=== PATIENT | male | born 1975 | race Caucasian/White ===

== ENCOUNTER 2018-05-27 08:14 | Outpatient (RCR) | payer BC, SELFPAY ==
[2018-05-27] MEDS: Normal Saline Flush 10 ML SYR IVP (08:15)
[2018-05-27 08:54] LABS: Absolute Basophil Count 0.02 k/cumm (0.0-0.2); Absolute Eosinophil Count 0.15 k/cumm (0.0-0.7); Absolute Lymphocyte Count 0.87 k/cumm (1.2-3.4); Absolute Monocyte Count 0.22 k/cumm (0.11-0.7); Absolute Neutrophil Count 2.39 k/cumm (1.2-6.7); Basophils % 0.5; Eosinophils % 4.1; HCT 41.2 % (40.0-50.0); HGB 13.9 g/dL (13.5-17.5); Lymphocytes % 23.8; Mean Corp. HGB Concentration 33.7 g/dL (32.0-36.0); Mean Corpuscular Hemoglobin 30.9 pg (27.0-33.0); Mean Corpuscular Volume 91.6 fL (80-95); Mean Platelet Volume 9.4 fL (8.0-11.0); Neutrophils % 65.6; Platelet Count 211 x1000/uL (130-400); White Blood Cell Count 3.65 k/cumm (4.4-10.8)
[2018-05-27 09:05] LABS: ALT 22 U/L (12-78); AST 17 U/L (15-37); Alkaline Phosphatase 83 U/L (46-116); Anion Gap 5.9 mmol/L (3-11); BUN 30 mg/dL (7-18); Bilirubin, Total 0.4 mg/dL (0.2-1.0); CO2 32.1 mmol/L (21.0-32.0); CREATININE 0.62 mg/dL (0.70-1.30); Calcium 8.9 mg/dL (8.5-10.1); Chloride 102 mmol/L (98-107); Glucose 86 mg/dL (70-100); Sodium 140 mmol/L (136-145); Total Protein 7.5 g/dL (6.4-8.2)
== END 2018-06-10 23:59 | disposition home or self-care (01) ==
LOC: INF 08:14
PROVIDERS: PCP Family Medicine; Visit Provider Nurse Practitioner Adult Health
DX: C01 Malignant neoplasm of base of tongue (principal); Z45.2 Encounter for adjustment and management of vascular access device
CPT/HCPCS: 36591; 80053; 85025

== ENCOUNTER 2018-06-18 00:55 | Outpatient (RCR) | payer BC, SELFPAY ==
[2018-06-18] MEDS: Normal Saline Flush 10 ML SYR IVP (08:10)
[2018-06-18 08:34] LABS: Absolute Basophil Count 0.01 k/cumm (0.0-0.2); Absolute Eosinophil Count 0.02 k/cumm (0.0-0.7); Absolute Lymphocyte Count 0.75 k/cumm (1.2-3.4); Absolute Monocyte Count 0.25 k/cumm (0.11-0.7); Basophils % 0.3; Eosinophils % 0.7; HCT 39.4 % (40.0-50.0); HGB 13.3 g/dL (13.5-17.5); Lymphocytes % 24.8; Mean Corp. HGB Concentration 33.8 g/dL (32.0-36.0); Mean Corpuscular Hemoglobin 30.2 pg (27.0-33.0); Mean Corpuscular Volume 89.5 fL (80-95); Mean Platelet Volume 8.5 fL (8.0-11.0); Monocytes % 8.3; Neutrophils % 65.9; Platelet Count 202 x1000/uL (130-400); RBC Distribution Width 12.6 % (11.8-14.1); White Blood Cell Count 3.03 k/cumm (4.4-10.8)
[2018-06-18 08:58] LABS: ALT 25 U/L (12-78); AST 15 U/L (15-37); Albumin 3.8 g/dL (3.4-5.0); Alkaline Phosphatase 93 U/L (46-116); Anion Gap 8.1 mmol/L (3-11); BUN 12 mg/dL (7-18); Bilirubin, Total 0.3 mg/dL (0.2-1.0); CO2 29.9 mmol/L (21.0-32.0); CREATININE 0.71 mg/dL (0.70-1.30); Calcium 8.8 mg/dL (8.5-10.1); Chloride 103 mmol/L (98-107); Glucose 85 mg/dL (70-100); Potassium 3.8 mmol/L (3.5-5.1); Sodium 141 mmol/L (136-145); TSH 3.33 uIU/mL (0.358-3.74); Total Protein 7.1 g/dL (6.4-8.2)
[2018-06-18 09:53] LABS: Magnesium 1.8 mg/dL (1.8-2.4)
== END 2018-07-10 23:59 | disposition home or self-care (01) ==
LOC: INF 00:55
PROVIDERS: PCP Family Medicine; Visit Provider Internal Medicine Hematology & Oncology
DX: C01 Malignant neoplasm of base of tongue (principal); C76.0 Malignant neoplasm of head, face and neck; Z45.2 Encounter for adjustment and management of vascular access device
CPT/HCPCS: 36591; 80053; 83735; 84443; 85025

== ENCOUNTER 2018-07-16 02:13 | Outpatient (RCR) | payer BC, SELFPAY ==
[2018-07-16] MEDS: Normal Saline Flush 10 ML SYR IVP (09:15)
[2018-07-16 09:25] LABS: Abs Immature Grans 0.01 k/cumm (0.0-0.09); Absolute Basophil Count 0.02 k/cumm (0.0-0.2); Absolute Eosinophil Count 0.12 k/cumm (0.0-0.7); Absolute Lymphocyte Count 1.38 k/cumm (1.2-3.4); Absolute Monocyte Count 0.36 k/cumm (0.11-0.7); Absolute Neutrophil Count 2.94 k/cumm (1.2-6.7); Basophils % 0.4; Eosinophils % 2.5; HCT 41.8 % (40.0-50.0); HGB 14.6 g/dL (13.5-17.5); Immature Grans % 0.2; Lymphocytes % 28.6; Mean Corp. HGB Concentration 34.9 g/dL (32.0-36.0); Mean Corpuscular Hemoglobin 31.1 pg (27.0-33.0); Mean Corpuscular Volume 89.1 fL (80-95); Mean Platelet Volume 8.4 fL (8.0-11.0); Monocytes % 7.5; Neutrophils % 60.8; Platelet Count 205 x1000/uL (130-400); RBC 4.69 m/cumm (4.50-6.00); RBC Distribution Width 13.8 % (11.8-14.1); White Blood Cell Count 4.83 k/cumm (4.4-10.8)
[2018-07-16 09:48] LABS: ALT 24 U/L (12-78); AST 16 U/L (15-37); Albumin 4.1 g/dL (3.4-5.0); Alkaline Phosphatase 103 U/L (46-116); Anion Gap 8.3 mmol/L (3-11); BUN 22 mg/dL (7-18); Bilirubin, Total 0.4 mg/dL (0.2-1.0); CO2 29.7 mmol/L (21.0-32.0); Calcium 8.9 mg/dL (8.5-10.1); Chloride 101 mmol/L (98-107); Glucose 94 mg/dL (70-100); Sodium 139 mmol/L (136-145); Total Protein 7.5 g/dL (6.4-8.2)
== END 2018-08-10 23:59 | disposition home or self-care (01) ==
LOC: INF 02:13
PROVIDERS: PCP Family Medicine; Visit Provider Internal Medicine Hematology & Oncology
DX: C01 Malignant neoplasm of base of tongue (principal); Z45.2 Encounter for adjustment and management of vascular access device; E03.9 Hypothyroidism, unspecified; C76.0 Malignant neoplasm of head, face and neck; B37.0 Candidal stomatitis; R91.1 Solitary pulmonary nodule
CPT/HCPCS: 36591; 80053; 83735; 84443; 85025

== ENCOUNTER 2018-10-21 02:44 | Outpatient (RCR) | payer BC, SELFPAY ==
[2018-10-21] MEDS: Normal Saline Flush 10 ML SYR IVP (12:18)
[2018-10-21 12:31] LABS: Abs Immature Grans 0.01 k/cumm (0.0-0.09); Absolute Basophil Count 0.02 k/cumm (0.0-0.2); Absolute Eosinophil Count 0.12 k/cumm (0.0-0.7); Absolute Lymphocyte Count 1.41 k/cumm (1.2-3.4); Absolute Monocyte Count 0.35 k/cumm (0.11-0.7); Absolute Neutrophil Count 4.58 k/cumm (1.2-6.7); Basophils % 0.3; Eosinophils % 1.8; HCT 39.5 % (40.0-50.0); HGB 13.3 g/dL (13.5-17.5); Immature Grans % 0.2; Lymphocytes % 21.7; Mean Corp. HGB Concentration 33.7 g/dL (32.0-36.0); Mean Corpuscular Hemoglobin 30.4 pg (27.0-33.0); Mean Corpuscular Volume 90.4 fL (80-95); Mean Platelet Volume 8.5 fL (8.0-11.0); Monocytes % 5.4; Neutrophils % 70.6; Platelet Count 261 x1000/uL (130-400); RBC 4.37 m/cumm (4.50-6.00); RBC Distribution Width 11.7 % (11.8-14.1); White Blood Cell Count 6.49 k/cumm (4.4-10.8)
[2018-10-21 12:49] LABS: ALT 23 U/L (12-78); AST 16 U/L (15-37); Albumin 3.7 g/dL (3.4-5.0); Alkaline Phosphatase 93 U/L (46-116); Anion Gap 5.4 mmol/L (3-11); BUN 28 mg/dL (7-18); Bilirubin, Total 0.2 mg/dL (0.2-1.0); CO2 31.6 mmol/L (21.0-32.0); CREATININE 0.74 mg/dL (0.70-1.30); Calcium 8.6 mg/dL (8.5-10.1); Chloride 102 mmol/L (98-107); Glucose 100 mg/dL (70-100); Magnesium 1.8 mg/dL (1.8-2.4); Potassium 4.1 mmol/L (3.5-5.1); Sodium 139 mmol/L (136-145); Total Protein 7.3 g/dL (6.4-8.2)
== END 2018-11-08 23:59 | disposition home or self-care (01) ==
LOC: INF 02:44
PROVIDERS: PCP Family Medicine; Visit Provider Nurse Practitioner Adult Health
DX: C01 Malignant neoplasm of base of tongue (principal); E03.9 Hypothyroidism, unspecified; C76.0 Malignant neoplasm of head, face and neck; B37.0 Candidal stomatitis; R91.1 Solitary pulmonary nodule; Z45.2 Encounter for adjustment and management of vascular access device
CPT/HCPCS: 36591; 80053; 83735; 85025

== ENCOUNTER 2018-12-03 02:19 | Outpatient (RCR) | payer BC, SELFPAY ==
[2018-11-12] MEDS: Normal Saline Flush 10 ML SYR IVP (09:00)
[2018-11-12 09:23] LABS: Abs Immature Grans 0.01 k/cumm (0.0-0.09); Absolute Basophil Count 0.02 k/cumm (0.0-0.2); Absolute Eosinophil Count 0.26 k/cumm (0.0-0.7); Absolute Lymphocyte Count 1.19 k/cumm (1.2-3.4); Absolute Monocyte Count 0.29 k/cumm (0.11-0.7); Basophils % 0.3; Eosinophils % 4.2; HCT 39.1 % (40.0-50.0); HGB 13.5 g/dL (13.5-17.5); Immature Grans % 0.2; Lymphocytes % 19.3; Mean Corp. HGB Concentration 34.5 g/dL (32.0-36.0); Mean Corpuscular Hemoglobin 30.8 pg (27.0-33.0); Mean Corpuscular Volume 89.3 fL (80-95); Mean Platelet Volume 8.5 fL (8.0-11.0); Monocytes % 4.7; Neutrophils % 71.3; Platelet Count 214 x1000/uL (130-400); RBC 4.38 m/cumm (4.50-6.00); RBC Distribution Width 12.4 % (11.8-14.1); White Blood Cell Count 6.17 k/cumm (4.4-10.8)
[2018-11-12 09:46] LABS: ALT 23 U/L (12-78); AST 17 U/L (15-37); Albumin 3.9 g/dL (3.4-5.0); Alkaline Phosphatase 105 U/L (46-116); Anion Gap 8.8 mmol/L (3-11); BUN 27 mg/dL (7-18); Bilirubin, Total 0.4 mg/dL (0.2-1.0); CO2 29.2 mmol/L (21.0-32.0); CREATININE 0.74 mg/dL (0.70-1.30); Calcium 8.6 mg/dL (8.5-10.1); Chloride 103 mmol/L (98-107); Glucose 91 mg/dL (70-100); Magnesium 1.9 mg/dL (1.8-2.4); Potassium 4.1 mmol/L (3.5-5.1); Sodium 141 mmol/L (136-145); Total Protein 7.3 g/dL (6.4-8.2)
[2018-12-03] MEDS: Normal Saline Flush 10 ML SYR IVP (08:50)
[2018-12-03 09:06] LABS: Abs Immature Grans 0.01 k/cumm (0.0-0.09); Absolute Basophil Count 0.02 k/cumm (0.0-0.2); Absolute Eosinophil Count 0.22 k/cumm (0.0-0.7); Absolute Lymphocyte Count 1.13 k/cumm (1.2-3.4); Absolute Neutrophil Count 3.18 k/cumm (1.2-6.7); Basophils % 0.4; Eosinophils % 4.5; HCT 38.5 % (40.0-50.0); HGB 12.8 g/dL (13.5-17.5); Immature Grans % 0.2; Lymphocytes % 23.3; Mean Corp. HGB Concentration 33.2 g/dL (32.0-36.0); Mean Corpuscular Hemoglobin 29.9 pg (27.0-33.0); Mean Platelet Volume 8.3 fL (8.0-11.0); Monocytes % 6.2; Neutrophils % 65.4; Platelet Count 308 x1000/uL (130-400); RBC 4.28 m/cumm (4.50-6.00); RBC Distribution Width 12.6 % (11.8-14.1); White Blood Cell Count 4.86 k/cumm (4.4-10.8)
[2018-12-03 09:27] LABS: ALT 18 U/L (12-78); AST 13 U/L (15-37); Albumin 3.7 g/dL (3.4-5.0); Alkaline Phosphatase 90 U/L (46-116); Anion Gap 8.3 mmol/L (3-11); BUN 30 mg/dL (7-18); Bilirubin, Total 0.3 mg/dL (0.2-1.0); CO2 26.7 mmol/L (21.0-32.0); Calcium 8.5 mg/dL (8.5-10.1); Chloride 101 mmol/L (98-107); FREE T4 1.03 ng/dL (0.76-1.46); Glucose 104 mg/dL (70-100); Magnesium 1.8 mg/dL (1.8-2.4); Potassium 3.9 mmol/L (3.5-5.1); Sodium 136 mmol/L (136-145); TSH 5.55 uIU/mL (0.358-3.74); Total Protein 7.5 g/dL (6.4-8.2)
== END 2018-12-08 23:59 | disposition home or self-care (01) ==
LOC: INF 02:19
PROVIDERS: PCP Family Medicine; Visit Provider Nurse Practitioner Adult Health
DX: C01 Malignant neoplasm of base of tongue (principal); E03.9 Hypothyroidism, unspecified; C76.0 Malignant neoplasm of head, face and neck; B37.0 Candidal stomatitis; R91.8 Other nonspecific abnormal finding of lung field; Z45.2 Encounter for adjustment and management of vascular access device
CPT/HCPCS: 36591; 80053; 83735; 84439; 84443; 85025

== ENCOUNTER 2018-12-29 01:02 | Outpatient (RCR) | payer BC, SELFPAY ==
[2018-12-29] MEDS: Normal Saline Flush 10 ML SYR IVP (10:24)
[2018-12-29 10:37] LABS: Abs Immature Grans 0.01 k/cumm (0.0-0.09); Absolute Basophil Count 0.03 k/cumm (0.0-0.2); Absolute Eosinophil Count 0.21 k/cumm (0.0-0.7); Absolute Lymphocyte Count 1.27 k/cumm (1.2-3.4); Absolute Monocyte Count 0.34 k/cumm (0.11-0.7); Absolute Neutrophil Count 4.74 k/cumm (1.2-6.7); Basophils % 0.5; Eosinophils % 3.2; HCT 40.5 % (40.0-50.0); HGB 13.7 g/dL (13.5-17.5); Immature Grans % 0.2; Lymphocytes % 19.2; Mean Corp. HGB Concentration 33.8 g/dL (32.0-36.0); Mean Corpuscular Hemoglobin 30.6 pg (27.0-33.0); Mean Corpuscular Volume 90.6 fL (80-95); Mean Platelet Volume 8.7 fL (8.0-11.0); Monocytes % 5.2; Neutrophils % 71.7; Platelet Count 221 x1000/uL (130-400); RBC 4.47 m/cumm (4.50-6.00); RBC Distribution Width 13.4 % (11.8-14.1)
[2018-12-29 11:00] LABS: ALT 31 U/L (12-78); AST 16 U/L (15-37); Albumin 3.7 g/dL (3.4-5.0); Alkaline Phosphatase 101 U/L (46-116); Anion Gap 6.3 mmol/L (3-11); BUN 24 mg/dL (7-18); Bilirubin, Total 0.4 mg/dL (0.2-1.0); CO2 29.7 mmol/L (21.0-32.0); CREATININE 0.75 mg/dL (0.70-1.30); Calcium 8.5 mg/dL (8.5-10.1); Chloride 103 mmol/L (98-107); FREE T4 0.98 ng/dL (0.76-1.46); Glucose 102 mg/dL (70-100); Magnesium 1.9 mg/dL (1.8-2.4); Potassium 3.6 mmol/L (3.5-5.1); Sodium 139 mmol/L (136-145); Total Protein 7.1 g/dL (6.4-8.2)
== END 2019-01-08 23:59 | disposition home or self-care (01) ==
LOC: INF 01:02
PROVIDERS: Nurse Practitioner Adult Health; PCP Family Medicine; Visit Provider Internal Medicine Hematology & Oncology
DX: C01 Malignant neoplasm of base of tongue (principal); C76.0 Malignant neoplasm of head, face and neck; E03.9 Hypothyroidism, unspecified; B37.0 Candidal stomatitis; R91.1 Solitary pulmonary nodule; Z45.2 Encounter for adjustment and management of vascular access device
CPT/HCPCS: 36591; 80053; 83735; 84439; 84443; 85025

== ENCOUNTER 2019-01-21 02:02 | Outpatient (RCR) | payer BC, SELFPAY ==
[2019-01-21] MEDS: Normal Saline Flush 10 ML SYR IVP (09:20)
[2019-01-21 09:54] LABS: Abs Immature Grans 0.01 k/cumm (0.0-0.09); Absolute Basophil Count 0.02 k/cumm (0.0-0.2); Absolute Eosinophil Count 0.24 k/cumm (0.0-0.7); Absolute Lymphocyte Count 1.04 k/cumm (1.2-3.4); Absolute Monocyte Count 0.33 k/cumm (0.11-0.7); Absolute Neutrophil Count 3.94 k/cumm (1.2-6.7); Basophils % 0.4; Eosinophils % 4.3; HCT 39.8 % (40.0-50.0); HGB 13.6 g/dL (13.5-17.5); Immature Grans % 0.2; Lymphocytes % 18.6; Mean Corp. HGB Concentration 34.2 g/dL (32.0-36.0); Mean Corpuscular Hemoglobin 30.6 pg (27.0-33.0); Mean Corpuscular Volume 89.4 fL (80-95); Mean Platelet Volume 8.6 fL (8.0-11.0); Monocytes % 5.9; Neutrophils % 70.6; Platelet Count 251 x1000/uL (130-400); RBC 4.45 m/cumm (4.50-6.00); RBC Distribution Width 12.5 % (11.8-14.1); White Blood Cell Count 5.58 k/cumm (4.4-10.8)
[2019-01-21 10:15] LABS: ALT 20 U/L (12-78); AST 15 U/L (15-37); Albumin 3.6 g/dL (3.4-5.0); Alkaline Phosphatase 99 U/L (46-116); Anion Gap 9.5 mmol/L (3-11); BUN 30 mg/dL (7-18); Bilirubin, Total 0.4 mg/dL (0.2-1.0); CO2 26.5 mmol/L (21.0-32.0); CREATININE 0.72 mg/dL (0.70-1.30); Calcium 8.6 mg/dL (8.5-10.1); Chloride 103 mmol/L (98-107); FREE T4 1.03 ng/dL (0.76-1.46); Glucose 89 mg/dL (70-100); Magnesium 2.1 mg/dL (1.8-2.4); Potassium 3.8 mmol/L (3.5-5.1); Sodium 139 mmol/L (136-145); TSH 4.54 uIU/mL (0.358-3.74); Total Protein 7.3 g/dL (6.4-8.2)
== END 2019-02-07 23:59 | disposition home or self-care (01) ==
LOC: INF 02:02
PROVIDERS: PCP Family Medicine; Visit Provider Internal Medicine Hematology & Oncology
DX: C01 Malignant neoplasm of base of tongue (principal); C76.0 Malignant neoplasm of head, face and neck; E03.9 Hypothyroidism, unspecified; B37.0 Candidal stomatitis; R91.1 Solitary pulmonary nodule; Z45.2 Encounter for adjustment and management of vascular access device
CPT/HCPCS: 36591; 80053; 83735; 84439; 84443; 85025

== ENCOUNTER 2019-03-04 01:40 | Outpatient (RCR) | payer BC, SELFPAY ==
[2019-02-12] MEDS: Normal Saline Flush 10 ML SYR IVP (12:50)
[2019-02-12 13:21] LABS: Abs Immature Grans 0.01 k/cumm (0.0-0.09); Absolute Basophil Count 0.03 k/cumm (0.0-0.2); Absolute Eosinophil Count 0.29 k/cumm (0.0-0.7); Absolute Lymphocyte Count 1.46 k/cumm (1.2-3.4); Absolute Monocyte Count 0.31 k/cumm (0.11-0.7); Absolute Neutrophil Count 3.04 k/cumm (1.2-6.7); Basophils % 0.6; Eosinophils % 5.6; HCT 39.7 % (40.0-50.0); Immature Grans % 0.2; Lymphocytes % 28.4; Mean Corp. HGB Concentration 32.7 g/dL (32.0-36.0); Mean Corpuscular Hemoglobin 29.2 pg (27.0-33.0); Mean Corpuscular Volume 89.2 fL (80-95); Mean Platelet Volume 8.5 fL (8.0-11.0); Neutrophils % 59.2; Platelet Count 254 x1000/uL (130-400); RBC 4.45 m/cumm (4.50-6.00); RBC Distribution Width 12.5 % (11.8-14.1); White Blood Cell Count 5.14 k/cumm (4.4-10.8)
[2019-02-12 13:54] LABS: ALT 18 U/L (12-78); AST 16 U/L (15-37); Albumin 3.6 g/dL (3.4-5.0); Alkaline Phosphatase 93 U/L (46-116); Anion Gap 7.8 mmol/L (3-11); BUN 24 mg/dL (7-18); Bilirubin, Total 0.2 mg/dL (0.2-1.0); CO2 27.2 mmol/L (21.0-32.0); CREATININE 0.86 mg/dL (0.70-1.30); Calcium 8.7 mg/dL (8.5-10.1); Chloride 105 mmol/L (98-107); FREE T4 0.96 ng/dL (0.76-1.46); Glucose 100 mg/dL (70-100); Potassium 3.7 mmol/L (3.5-5.1); Sodium 140 mmol/L (136-145); TSH 5.36 uIU/mL (0.358-3.74); Total Protein 7.1 g/dL (6.4-8.2)
[2019-03-04] MEDS: Normal Saline Flush 10 ML SYR IVP (10:30)
[2019-03-04 11:01] LABS: Abs Immature Grans 0.01 k/cumm (0.0-0.09); Absolute Basophil Count 0.03 k/cumm (0.0-0.2); Absolute Eosinophil Count 0.23 k/cumm (0.0-0.7); Absolute Lymphocyte Count 1.15 k/cumm (1.2-3.4); Absolute Monocyte Count 0.31 k/cumm (0.11-0.7); Absolute Neutrophil Count 4.61 k/cumm (1.2-6.7); Basophils % 0.5; Eosinophils % 3.6; HCT 41.7 % (40.0-50.0); HGB 14.1 g/dL (13.5-17.5); Immature Grans % 0.2; Lymphocytes % 18.1; Mean Corp. HGB Concentration 33.8 g/dL (32.0-36.0); Mean Corpuscular Hemoglobin 29.9 pg (27.0-33.0); Mean Corpuscular Volume 88.3 fL (80-95); Mean Platelet Volume 8.7 fL (8.0-11.0); Monocytes % 4.9; Neutrophils % 72.7; Platelet Count 231 x1000/uL (130-400); RBC 4.72 m/cumm (4.50-6.00); RBC Distribution Width 12.8 % (11.8-14.1); White Blood Cell Count 6.34 k/cumm (4.4-10.8)
[2019-03-04 11:28] LABS: ALT 19 U/L (12-78); AST 8 U/L (15-37); Albumin 3.9 g/dL (3.4-5.0); Alkaline Phosphatase 96 U/L (46-116); Anion Gap 7.3 mmol/L (3-11); BUN 26 mg/dL (7-18); Bilirubin, Total 0.6 mg/dL (0.2-1.0); CO2 27.7 mmol/L (21.0-32.0); CREATININE 0.89 mg/dL (0.70-1.30); Calcium 8.9 mg/dL (8.5-10.1); Chloride 104 mmol/L (98-107); FREE T4 0.91 ng/dL (0.76-1.46); Glucose 91 mg/dL (70-100); Magnesium 2.1 mg/dL (1.8-2.4); Potassium 3.9 mmol/L (3.5-5.1); Sodium 139 mmol/L (136-145); TSH 7.23 uIU/mL (0.36-3.74); Total Protein 7.6 g/dL (6.4-8.2)
== END 2019-03-10 23:59 | disposition home or self-care (01) ==
LOC: INF 01:40
PROVIDERS: PCP Family Medicine; Visit Provider Internal Medicine Hematology & Oncology
DX: C01 Malignant neoplasm of base of tongue (principal); C76.0 Malignant neoplasm of head, face and neck; E03.9 Hypothyroidism, unspecified; B37.0 Candidal stomatitis; R91.1 Solitary pulmonary nodule
CPT/HCPCS: 36591; 80053; 83735; 84439; 84443; 85025

== ENCOUNTER 2019-05-07 02:13 | Outpatient (RCR) | payer MEDICARE, BC, SELFPAY ==
[2019-04-16] MEDS: Normal Saline Flush 10 ML SYR IVP (10:08)
[2019-04-16 10:13] LABS: Abs Immature Grans 0.01 k/cumm (0.0-0.09); Absolute Basophil Count 0.03 k/cumm (0.0-0.2); Absolute Eosinophil Count 0.28 k/cumm (0.0-0.7); Absolute Lymphocyte Count 1.21 k/cumm (1.2-3.4); Absolute Neutrophil Count 3.32 k/cumm (1.2-6.7); Basophils % 0.6; Eosinophils % 5.3; HCT 39.7 % (40.0-50.0); HGB 13.6 g/dL (13.5-17.5); Immature Grans % 0.2; Mean Corp. HGB Concentration 34.3 g/dL (32.0-36.0); Mean Corpuscular Volume 87.4 fL (80-95); Mean Platelet Volume 8.4 fL (8.0-11.0); Monocytes % 7.6; Neutrophils % 63.3; Platelet Count 230 x1000/uL (130-400); RBC 4.54 m/cumm (4.50-6.00); White Blood Cell Count 5.25 k/cumm (4.4-10.8)
[2019-04-16 10:39] LABS: ALT 17 U/L (16-63); AST 13 U/L (15-37); Albumin 3.6 g/dL (3.4-5.0); Alkaline Phosphatase 101 U/L (46-116); Anion Gap 8.3 mmol/L (3-11); BUN 19 mg/dL (7-18); Bilirubin, Total 0.5 mg/dL (0.2-1.0); CO2 29.7 mmol/L (21.0-32.0); CREATININE 0.81 mg/dL (0.70-1.30); Calcium 8.4 mg/dL (8.5-10.1); Chloride 101 mmol/L (98-107); Glucose 112 mg/dL (70-100); Sodium 139 mmol/L (136-145); TSH 7.78 uIU/mL (0.36-3.74); Total Protein 7.3 g/dL (6.4-8.2)
[2019-04-16 14:54] LABS: FREE T4 0.91 ng/dL (0.76-1.46)
[2019-05-07] MEDS: Normal Saline Flush 10 ML SYR IVP (10:09)
[2019-05-07 10:24] LABS: Abs Immature Grans 0.01 k/cumm (0.0-0.09); Absolute Basophil Count 0.03 k/cumm (0.0-0.2); Absolute Eosinophil Count 0.38 k/cumm (0.0-0.7); Absolute Monocyte Count 0.36 k/cumm (0.11-0.7); Absolute Neutrophil Count 3.95 k/cumm (1.2-6.7); Basophils % 0.5; Eosinophils % 6.4; HCT 41.1 % (40.0-50.0); HGB 13.8 g/dL (13.5-17.5); Immature Grans % 0.2; Lymphocytes % 20.2; Mean Corp. HGB Concentration 33.6 g/dL (32.0-36.0); Mean Corpuscular Hemoglobin 29.5 pg (27.0-33.0); Mean Corpuscular Volume 87.8 fL (80-95); Mean Platelet Volume 8.7 fL (8.0-11.0); Monocytes % 6.1; Neutrophils % 66.6; Platelet Count 223 x1000/uL (130-400); RBC 4.68 m/cumm (4.50-6.00); RBC Distribution Width 13.4 % (11.8-14.1); White Blood Cell Count 5.93 k/cumm (4.4-10.8)
[2019-05-07 10:56] LABS: ALT 23 U/L (16-63); AST 14 U/L (15-37); Albumin 3.8 g/dL (3.4-5.0); Alkaline Phosphatase 98 U/L (46-116); Anion Gap 7.3 mmol/L (3-11); BUN 19 mg/dL (7-18); Bilirubin, Total 0.7 mg/dL (0.2-1.0); CO2 28.7 mmol/L (21.0-32.0); CREATININE 0.72 mg/dL (0.70-1.30); Calcium 8.5 mg/dL (8.5-10.1); Chloride 103 mmol/L (98-107); FREE T4 0.92 ng/dL (0.76-1.46); Glucose 93 mg/dL (70-100); Magnesium 2.1 mg/dL (1.8-2.4); Potassium 4.2 mmol/L (3.5-5.1); Sodium 139 mmol/L (136-145); TSH 5.15 uIU/mL (0.36-3.74); Total Protein 7.5 g/dL (6.4-8.2)
== END 2019-05-10 23:59 | disposition home or self-care (01) ==
LOC: INF 02:13
PROVIDERS: PCP Family Medicine; Visit Provider Nurse Practitioner Adult Health
DX: C78.01 Secondary malignant neoplasm of right lung (principal); C78.02 Secondary malignant neoplasm of left lung; C01 Malignant neoplasm of base of tongue; Z79.899 Other long term (current) drug therapy; Z45.2 Encounter for adjustment and management of vascular access device
CPT/HCPCS: 36591; 80053; 83735; 84436; 84439; 84443; 85025

== ENCOUNTER 2019-05-31 01:54 | Outpatient (RCR) | payer MEDICARE, SELFPAY ==
[2019-05-31] MEDS: Normal Saline Flush 10 ML SYR IVP (10:08)
[2019-05-31 10:12] LABS: Abs Immature Grans 0.01 k/cumm (0.0-0.09); Absolute Basophil Count 0.03 k/cumm (0.0-0.2); Absolute Lymphocyte Count 1.02 k/cumm (1.2-3.4); Absolute Monocyte Count 0.31 k/cumm (0.11-0.7); Basophils % 0.5; Eosinophils % 8.1; HCT 40.1 % (40.0-50.0); HGB 13.6 g/dL (13.5-17.5); Immature Grans % 0.2; Lymphocytes % 16.5; Mean Corp. HGB Concentration 33.9 g/dL (32.0-36.0); Mean Corpuscular Hemoglobin 29.9 pg (27.0-33.0); Mean Corpuscular Volume 88.1 fL (80-95); Mean Platelet Volume 8.6 fL (8.0-11.0); Neutrophils % 69.7; Platelet Count 213 x1000/uL (130-400); RBC 4.55 m/cumm (4.50-6.00); RBC Distribution Width 13.2 % (11.8-14.1); White Blood Cell Count 6.17 k/cumm (4.4-10.8)
[2019-05-31 10:31] LABS: ALT 13 U/L (16-63); AST 13 U/L (15-37); Albumin 3.6 g/dL (3.4-5.0); Alkaline Phosphatase 93 U/L (46-116); Anion Gap 7.7 mmol/L (3-11); BUN 15 mg/dL (7-18); Bilirubin, Total 0.8 mg/dL (0.2-1.0); CO2 30.3 mmol/L (21.0-32.0); CREATININE 0.89 mg/dL (0.70-1.30); Calcium 8.4 mg/dL (8.5-10.1); Chloride 103 mmol/L (98-107); FREE T4 0.91 ng/dL (0.76-1.46); Glucose 108 mg/dL (70-100); Potassium 3.9 mmol/L (3.5-5.1); Sodium 141 mmol/L (136-145); TSH 4.22 uIU/mL (0.36-3.74); Total Protein 7.1 g/dL (6.4-8.2)
== END 2019-06-10 23:59 | disposition home or self-care (01) ==
LOC: INF 01:54
PROVIDERS: PCP Family Medicine; Visit Provider Nurse Practitioner Adult Health
DX: C01 Malignant neoplasm of base of tongue (principal); C78.01 Secondary malignant neoplasm of right lung; C78.02 Secondary malignant neoplasm of left lung; Z79.899 Other long term (current) drug therapy; Z45.2 Encounter for adjustment and management of vascular access device
CPT/HCPCS: 36591; 80053; 84439; 84443; 85025

== ENCOUNTER 2019-06-24 08:55 | Outpatient (RCR) | payer MEDICARE, SELFPAY ==
[2019-06-24 09:37] LABS: Abs Immature Grans 0.02 k/cumm (0.0-0.09); Absolute Basophil Count 0.04 k/cumm (0.0-0.2); Absolute Eosinophil Count 0.46 k/cumm (0.0-0.7); Absolute Lymphocyte Count 0.69 k/cumm (1.2-3.4); Absolute Monocyte Count 0.61 k/cumm (0.11-0.7); Absolute Neutrophil Count 5.71 k/cumm (1.2-6.7); Basophils % 0.5; Eosinophils % 6.1; HCT 35.6 % (40.0-50.0); HGB 11.8 g/dL (13.5-17.5); Immature Grans % 0.3; Lymphocytes % 9.2; Mean Corp. HGB Concentration 33.1 g/dL (32.0-36.0); Mean Corpuscular Volume 87.5 fL (80-95); Mean Platelet Volume 8.2 fL (8.0-11.0); Monocytes % 8.1; Neutrophils % 75.8; Platelet Count 341 x1000/uL (130-400); RBC 4.07 m/cumm (4.50-6.00); RBC Distribution Width 12.3 % (11.8-14.1); White Blood Cell Count 7.53 k/cumm (4.4-10.8)
[2019-06-24] MEDS: Normal Saline Flush 10 ML SYR 30 ML IVP (09:40)
[2019-06-24 10:00] LABS: ALT 16 U/L (16-63); AST 12 U/L (15-37); Albumin 3.1 g/dL (3.4-5.0); Alkaline Phosphatase 94 U/L (46-116); Anion Gap 7.2 mmol/L (3-11); BUN 15 mg/dL (7-18); Bilirubin, Total 0.3 mg/dL (0.2-1.0); CO2 29.8 mmol/L (21.0-32.0); CREATININE 0.78 mg/dL (0.70-1.30); Calcium 8.6 mg/dL (8.5-10.1); Chloride 102 mmol/L (98-107); FREE T4 1.08 ng/dL (0.76-1.46); Glucose 89 mg/dL (70-100); Potassium 4.2 mmol/L (3.5-5.1); Sodium 139 mmol/L (136-145); TSH 7.73 uIU/mL (0.36-3.74); Total Protein 7.4 g/dL (6.4-8.2)
== END 2019-07-10 23:59 | disposition home or self-care (01) ==
LOC: INF 08:55
PROVIDERS: PCP Family Medicine; Visit Provider Nurse Practitioner Adult Health
DX: C01 Malignant neoplasm of base of tongue (principal); C78.01 Secondary malignant neoplasm of right lung; C78.02 Secondary malignant neoplasm of left lung; Z79.899 Other long term (current) drug therapy; Z45.2 Encounter for adjustment and management of vascular access device
CPT/HCPCS: 36591; 80053; 84439; 84443; 85025

== ENCOUNTER 2019-07-30 04:03 | Outpatient (RCR) | payer MEDICARE, SELFPAY ==
[2019-07-30] MEDS: Normal Saline Flush 10 ML SYR 30 ML IVP (12:50)
[2019-07-30] MEDS: Heparin 500 UNITS/5 ML SYRINGE IV (12:50)
[2019-07-30 13:16] LABS: Absolute Basophil Count 0.02 k/cumm (0.0-0.2); Absolute Lymphocyte Count 0.72 k/cumm (1.2-3.4); Absolute Monocyte Count 0.29 k/cumm (0.11-0.7); Absolute Neutrophil Count 3.23 k/cumm (1.2-6.7); Basophils % 0.4; Eosinophils % 4.5; HCT 38.7 % (40.0-50.0); HGB 13.3 g/dL (13.5-17.5); Lymphocytes % 16.1; Mean Corp. HGB Concentration 34.4 g/dL (32.0-36.0); Mean Corpuscular Hemoglobin 30.3 pg (27.0-33.0); Mean Corpuscular Volume 88.2 fL (80-95); Mean Platelet Volume 8.1 fL (8.0-11.0); Monocytes % 6.5; Neutrophils % 72.5; Platelet Count 232 x1000/uL (130-400); RBC 4.39 m/cumm (4.50-6.00); RBC Distribution Width 13.8 % (11.8-14.1); White Blood Cell Count 4.46 k/cumm (4.4-10.8)
[2019-07-30 13:44] LABS: ALT 11 U/L (16-63); AST 13 U/L (15-37); Albumin 3.8 g/dL (3.4-5.0); Alkaline Phosphatase 91 U/L (46-116); Anion Gap 7.6 mmol/L (3-11); BUN 22 mg/dL (7-18); Bilirubin, Total 0.3 mg/dL (0.2-1.0); CO2 30.4 mmol/L (21.0-32.0); Calcium 8.6 mg/dL (8.5-10.1); Chloride 101 mmol/L (98-107); FREE T4 0.95 ng/dL (0.76-1.46); Glucose 100 mg/dL (74-106); Sodium 139 mmol/L (136-145); Total Protein 7.5 g/dL (6.4-8.2)
[2019-07-30 16:32] LABS: TSH 6.74 uIU/mL (0.36-3.74)
== END 2019-08-10 23:59 | disposition home or self-care (01) ==
LOC: INF 04:03
PROVIDERS: PCP Family Medicine; Visit Provider Internal Medicine Hematology & Oncology
DX: C01 Malignant neoplasm of base of tongue (principal); E03.9 Hypothyroidism, unspecified; C78.01 Secondary malignant neoplasm of right lung; C78.02 Secondary malignant neoplasm of left lung; Z45.2 Encounter for adjustment and management of vascular access device
CPT/HCPCS: 36591; 80053; 84439; 84443; 85025

== ENCOUNTER 2019-08-23 02:16 | Outpatient (RCR) | payer MEDICARE, SELFPAY ==
[2019-08-23] MEDS: Normal Saline Flush 10 ML SYR IVP (09:40)
[2019-08-23 10:03] LABS: Absolute Basophil Count 0.03 k/cumm (0.0-0.2); Absolute Eosinophil Count 0.21 k/cumm (0.0-0.7); Absolute Lymphocyte Count 0.69 k/cumm (1.2-3.4); Absolute Monocyte Count 0.34 k/cumm (0.11-0.7); Absolute Neutrophil Count 3.98 k/cumm (1.2-6.7); Basophils % 0.6; HCT 40.5 % (40.0-50.0); HGB 13.8 g/dL (13.5-17.5); Lymphocytes % 13.1; Mean Corp. HGB Concentration 34.1 g/dL (32.0-36.0); Mean Corpuscular Hemoglobin 29.6 pg (27.0-33.0); Mean Corpuscular Volume 86.7 fL (80-95); Mean Platelet Volume 8.3 fL (8.0-11.0); Monocytes % 6.5; Neutrophils % 75.8; Platelet Count 233 x1000/uL (130-400); RBC 4.67 m/cumm (4.50-6.00); RBC Distribution Width 13.2 % (11.8-14.1); White Blood Cell Count 5.25 k/cumm (4.4-10.8)
[2019-08-23 10:19] LABS: ALT 10 U/L (16-63); AST 10 U/L (15-37); Albumin 3.9 g/dL (3.4-5.0); Alkaline Phosphatase 94 U/L (46-116); Anion Gap 6.2 mmol/L (3-11); BUN 24 mg/dL (7-18); Bilirubin, Total 0.5 mg/dL (0.2-1.0); CO2 30.8 mmol/L (21.0-32.0); CREATININE 0.81 mg/dL (0.70-1.30); Chloride 103 mmol/L (98-107); FREE T4 0.95 ng/dL (0.76-1.46); Glucose 93 mg/dL (74-106); Sodium 140 mmol/L (136-145); TSH 5.68 uIU/mL (0.36-3.74); Total Protein 7.3 g/dL (6.4-8.2)
== END 2019-09-10 23:59 | disposition home or self-care (01) ==
LOC: INF 02:16
PROVIDERS: PCP Family Medicine; Visit Provider Internal Medicine Hematology & Oncology
DX: C01 Malignant neoplasm of base of tongue (principal); C78.01 Secondary malignant neoplasm of right lung; C78.02 Secondary malignant neoplasm of left lung; E03.9 Hypothyroidism, unspecified; Z79.899 Other long term (current) drug therapy; Z45.2 Encounter for adjustment and management of vascular access device
CPT/HCPCS: 36591; 80053; 84439; 84443; 85025

== ENCOUNTER 2019-09-27 03:20 | Outpatient (RCR) | payer MEDICARE, SELFPAY ==
[2019-09-27] MEDS: Normal Saline Flush 10 ML SYR IVP (08:05)
[2019-09-27 08:44] LABS: Abs Immature Grans 0.01 k/cumm (0.0-0.09); Absolute Basophil Count 0.03 k/cumm (0.0-0.2); Absolute Eosinophil Count 0.28 k/cumm (0.0-0.7); Absolute Lymphocyte Count 0.94 k/cumm (1.2-3.4); Absolute Monocyte Count 0.34 k/cumm (0.11-0.7); Absolute Neutrophil Count 3.46 k/cumm (1.2-6.7); Basophils % 0.6; Eosinophils % 5.5; HCT 43.2 % (40.0-50.0); HGB 14.7 g/dL (13.5-17.5); Immature Grans % 0.2 %; Lymphocytes % 18.6; Mean Corpuscular Hemoglobin 29.5 pg (27.0-33.0); Mean Corpuscular Volume 86.6 fL (80-95); Mean Platelet Volume 8.4 fL (8.0-11.0); Monocytes % 6.7; Neutrophils % 68.4; Platelet Count 281 x1000/uL (130-400); RBC 4.99 m/cumm (4.50-6.00); RBC Distribution Width 13.2 % (11.8-14.1); White Blood Cell Count 5.06 k/cumm (4.4-10.8)
[2019-09-27 08:59] LABS: ALT 15 U/L (16-63); AST 13 U/L (15-37); Alkaline Phosphatase 100 U/L (46-116); Anion Gap 6.5 mmol/L (3-11); BUN 21 mg/dL (7-18); Bilirubin, Total 0.5 mg/dL (0.2-1.0); CO2 31.5 mmol/L (21.0-32.0); CREATININE 0.92 mg/dL (0.70-1.30); Calcium 8.8 mg/dL (8.5-10.1); Chloride 103 mmol/L (98-107); FREE T4 1.13 ng/dL (0.76-1.46); Glucose 93 mg/dL (74-106); Potassium 3.9 mmol/L (3.5-5.1); Sodium 141 mmol/L (136-145); TSH 8.92 uIU/mL (0.36-3.74); Total Protein 7.6 g/dL (6.4-8.2)
== END 2019-10-09 23:59 | disposition home or self-care (01) ==
LOC: INF 03:20
PROVIDERS: PCP Family Medicine; Visit Provider Internal Medicine Hematology & Oncology
DX: Z79.899 Other long term (current) drug therapy (principal); Z45.2 Encounter for adjustment and management of vascular access device; C01 Malignant neoplasm of base of tongue; C78.01 Secondary malignant neoplasm of right lung; C78.02 Secondary malignant neoplasm of left lung; E03.9 Hypothyroidism, unspecified
CPT/HCPCS: 36591; 80053; 84439; 84443; 85025

== ENCOUNTER 2019-11-08 10:00 | Outpatient (RCR) | payer MEDICARE, SELFPAY ==
[2019-10-18 09:25] LABS: Abs Immature Grans 0.02 k/cumm (0.0-0.09); Absolute Basophil Count 0.04 k/cumm (0.0-0.2); Absolute Eosinophil Count 0.33 k/cumm (0.0-0.7); Absolute Lymphocyte Count 0.94 k/cumm (1.2-3.4); Absolute Monocyte Count 0.54 k/cumm (0.11-0.7); Absolute Neutrophil Count 6.02 k/cumm (1.2-6.7); Basophils % 0.5; Eosinophils % 4.2; HGB 14.9 g/dL (13.5-17.5); Immature Grans % 0.3 %; Lymphocytes % 11.9; Mean Corp. HGB Concentration 33.9 g/dL (32.0-36.0); Mean Corpuscular Hemoglobin 29.6 pg (27.0-33.0); Mean Corpuscular Volume 87.3 fL (80-95); Mean Platelet Volume 8.1 fL (8.0-11.0); Monocytes % 6.8; Neutrophils % 76.3; Platelet Count 250 x1000/uL (130-400); RBC 5.04 m/cumm (4.50-6.00); RBC Distribution Width 13.3 % (11.8-14.1); White Blood Cell Count 7.89 k/cumm (4.4-10.8)
[2019-10-18] MEDS: Normal Saline Flush 10 ML SYR IVP (09:25)
[2019-10-18 10:01] LABS: ALT 17 U/L (16-63); AST 13 U/L (15-37); Albumin 3.8 g/dL (3.4-5.0); Alkaline Phosphatase 96 U/L (46-116); Anion Gap 6.6 mmol/L (3-11); BUN 23 mg/dL (7-18); Bilirubin, Total 0.2 mg/dL (0.2-1.0); CO2 29.4 mmol/L (21.0-32.0); CREATININE 0.81 mg/dL (0.70-1.30); Calcium 7.7 mg/dL (8.5-10.1); Chloride 102 mmol/L (98-107); FREE T4 1.04 ng/dL (0.76-1.46); Glucose 86 mg/dL (74-106); Potassium 4.1 mmol/L (3.5-5.1); Sodium 138 mmol/L (136-145); TSH 9.67 uIU/mL (0.36-3.74); Total Protein 7.3 g/dL (6.4-8.2)
[2019-11-08 10:59] LABS: Abs Immature Grans 0.01 k/cumm (0.0-0.09); Absolute Basophil Count 0.03 k/cumm (0.0-0.2); Absolute Eosinophil Count 0.33 k/cumm (0.0-0.7); Absolute Lymphocyte Count 0.79 k/cumm (1.2-3.4); Absolute Monocyte Count 0.36 k/cumm (0.11-0.7); Absolute Neutrophil Count 3.66 k/cumm (1.2-6.7); Basophils % 0.6; Eosinophils % 6.4; HCT 40.7 % (40.0-50.0); Immature Grans % 0.2 %; Lymphocytes % 15.3; Mean Corp. HGB Concentration 34.4 g/dL (32.0-36.0); Mean Corpuscular Volume 87.2 fL (80-95); Mean Platelet Volume 8.1 fL (8.0-11.0); Monocytes % 6.9; Neutrophils % 70.6; Platelet Count 252 x1000/uL (130-400); RBC 4.67 m/cumm (4.50-6.00); RBC Distribution Width 12.6 % (11.8-14.1); White Blood Cell Count 5.18 k/cumm (4.4-10.8)
[2019-11-08 11:20] LABS: ALT 18 U/L (16-63); AST 16 U/L (15-37); Albumin 3.8 g/dL (3.4-5.0); Alkaline Phosphatase 100 U/L (46-116); Anion Gap 5.5 mmol/L (3-11); BUN 18 mg/dL (7-18); Bilirubin, Total 0.3 mg/dL (0.2-1.0); CO2 30.5 mmol/L (21.0-32.0); CREATININE 0.85 mg/dL (0.70-1.30); Calcium 8.8 mg/dL (8.5-10.1); Chloride 103 mmol/L (98-107); FREE T4 1.16 ng/dL (0.76-1.46); Glucose 102 mg/dL (74-106); Potassium 3.8 mmol/L (3.5-5.1); Sodium 139 mmol/L (136-145); TSH 2.89 uIU/mL (0.36-3.74); Total Protein 7.7 g/dL (6.4-8.2)
[2019-11-08] MEDS: Normal Saline Flush 10 ML SYR IVP (11:37)
== END 2019-11-09 23:59 | disposition home or self-care (01) ==
LOC: INF 10:00
PROVIDERS: PCP Family Medicine; Visit Provider Internal Medicine Hematology & Oncology
DX: C01 Malignant neoplasm of base of tongue (principal); C78.01 Secondary malignant neoplasm of right lung; C78.02 Secondary malignant neoplasm of left lung; E03.9 Hypothyroidism, unspecified; Z79.899 Other long term (current) drug therapy; Z45.2 Encounter for adjustment and management of vascular access device
CPT/HCPCS: 36591; 80053; 84439; 84443; 85025

== ENCOUNTER 2019-12-06 00:39 | Outpatient (RCR) | payer MEDICARE, SELFPAY ==
[2019-11-29] MEDS: Normal Saline Flush 10 ML SYR IVP (09:51)
[2019-11-29 10:07] LABS: Abs Immature Grans 0.03 k/cumm (0.0-0.09); Absolute Basophil Count 0.05 k/cumm (0.0-0.2); Absolute Eosinophil Count 0.22 k/cumm (0.0-0.7); Absolute Lymphocyte Count 0.92 k/cumm (1.2-3.4); Absolute Monocyte Count 0.51 k/cumm (0.11-0.7); Absolute Neutrophil Count 6.49 k/cumm (1.2-6.7); Basophils % 0.6; Eosinophils % 2.7; HCT 39.5 % (40.0-50.0); HGB 13.2 g/dL (13.5-17.5); Immature Grans % 0.4 %; Lymphocytes % 11.2; Mean Corp. HGB Concentration 33.4 g/dL (32.0-36.0); Mean Corpuscular Hemoglobin 29.1 pg (27.0-33.0); Mean Platelet Volume 8.2 fL (8.0-11.0); Monocytes % 6.2; Neutrophils % 78.9; Platelet Count 292 x1000/uL (130-400); RBC 4.54 m/cumm (4.50-6.00); RBC Distribution Width 12.9 % (11.8-14.1); White Blood Cell Count 8.22 k/cumm (4.4-10.8)
[2019-11-29 10:31] LABS: ALT 28 U/L (16-63); AST 17 U/L (15-37); Albumin 3.8 g/dL (3.4-5.0); Alkaline Phosphatase 101 U/L (46-116); Anion Gap 8.6 mmol/L (3-11); BUN 18 mg/dL (7-18); Bilirubin, Total 0.8 mg/dL (0.2-1.0); CO2 29.4 mmol/L (21.0-32.0); CREATININE 0.92 mg/dL (0.70-1.30); Calcium 8.9 mg/dL (8.5-10.1); Chloride 101 mmol/L (98-107); FREE T4 1.12 ng/dL (0.76-1.46); Glucose 85 mg/dL (74-106); Sodium 139 mmol/L (136-145); TSH 2.07 uIU/mL (0.36-3.74); Total Protein 7.8 g/dL (6.4-8.2)
== END 2019-12-09 23:59 | disposition home or self-care (01) ==
LOC: INF 00:39
PROVIDERS: PCP Family Medicine; Visit Provider Internal Medicine Hematology & Oncology
DX: Z79.899 Other long term (current) drug therapy (principal)
CPT/HCPCS: 36591; 80053; 84439; 84443; 85025

== ENCOUNTER 2019-12-20 01:56 | Outpatient (RCR) | payer MEDICARE, SELFPAY ==
[2019-12-20] MEDS: Normal Saline Flush 10 ML SYR IVP (09:14)
[2019-12-20 09:34] LABS: Abs Immature Grans 0.01 k/cumm (0.0-0.09); Absolute Basophil Count 0.04 k/cumm (0.0-0.2); Absolute Eosinophil Count 0.21 k/cumm (0.0-0.7); Absolute Lymphocyte Count 0.75 k/cumm (1.2-3.4); Absolute Monocyte Count 0.39 k/cumm (0.11-0.7); Absolute Neutrophil Count 4.66 k/cumm (1.2-6.7); Basophils % 0.7; Eosinophils % 3.5; HCT 39.2 % (40.0-50.0); HGB 13.4 g/dL (13.5-17.5); Immature Grans % 0.2 %; Lymphocytes % 12.4; Mean Corp. HGB Concentration 34.2 g/dL (32.0-36.0); Mean Corpuscular Hemoglobin 29.8 pg (27.0-33.0); Mean Corpuscular Volume 87.1 fL (80-95); Mean Platelet Volume 8.4 fL (8.0-11.0); Monocytes % 6.4; Neutrophils % 76.8; Platelet Count 262 x1000/uL (130-400); RBC Distribution Width 13.4 % (11.8-14.1); White Blood Cell Count 6.06 k/cumm (4.4-10.8)
[2019-12-20 09:42] LABS: ALT 23 U/L (16-63); AST 17 U/L (15-37); Albumin 3.9 g/dL (3.4-5.0); Alkaline Phosphatase 96 U/L (46-116); Anion Gap 7.6 mmol/L (3-11); BUN 18 mg/dL (7-18); Bilirubin, Total 0.5 mg/dL (0.2-1.0); CO2 28.4 mmol/L (21.0-32.0); CREATININE 1.01 mg/dL (0.70-1.30); Calcium 8.7 mg/dL (8.5-10.1); Chloride 101 mmol/L (98-107); Glucose 91 mg/dL (74-106); Potassium 4.1 mmol/L (3.5-5.1); Sodium 137 mmol/L (136-145); Total Protein 7.7 g/dL (6.4-8.2)
== END 2020-01-09 23:59 | disposition home or self-care (01) ==
LOC: INF 01:56
PROVIDERS: PCP Family Medicine; Visit Provider Internal Medicine Hematology & Oncology
DX: Z79.899 Other long term (current) drug therapy (principal); Z45.2 Encounter for adjustment and management of vascular access device
CPT/HCPCS: 36591; 80053; 85025

== ENCOUNTER 2020-01-24 01:34 | Outpatient (RCR) | payer MEDICARE, SELFPAY ==
[2020-01-12] MEDS: Normal Saline Flush 10 ML SYR IVP (10:01)
[2020-01-12 10:15] LABS: Abs Immature Grans 0.01 k/cumm (0.0-0.09); Absolute Basophil Count 0.03 k/cumm (0.0-0.2); Absolute Eosinophil Count 0.14 k/cumm (0.0-0.7); Absolute Lymphocyte Count 0.82 k/cumm (1.2-3.4); Absolute Monocyte Count 0.45 k/cumm (0.11-0.7); Absolute Neutrophil Count 5.29 k/cumm (1.2-6.7); Basophils % 0.4; Eosinophils % 2.1; HGB 13.2 g/dL (13.5-17.5); Immature Grans % 0.1 %; Lymphocytes % 12.2; Mean Corp. HGB Concentration 33.8 g/dL (32.0-36.0); Mean Corpuscular Hemoglobin 29.3 pg (27.0-33.0); Mean Corpuscular Volume 86.7 fL (80-95); Mean Platelet Volume 8.3 fL (8.0-11.0); Monocytes % 6.7; Neutrophils % 78.5; Platelet Count 291 x1000/uL (130-400); RBC Distribution Width 13.5 % (11.8-14.1); White Blood Cell Count 6.74 k/cumm (4.4-10.8)
[2020-01-12 10:24] LABS: ALT 16 U/L (16-63); AST 15 U/L (15-37); Alkaline Phosphatase 94 U/L (46-116); Anion Gap 6.4 mmol/L (3-11); BUN 17 mg/dL (7-18); Bilirubin, Total 0.4 mg/dL (0.2-1.0); CO2 30.6 mmol/L (21.0-32.0); CREATININE 0.89 mg/dL (0.70-1.30); Calcium 8.5 mg/dL (8.5-10.1); Chloride 100 mmol/L (98-107); Glucose 96 mg/dL (74-106); Potassium 3.8 mmol/L (3.5-5.1); Sodium 137 mmol/L (136-145); Total Protein 7.6 g/dL (6.4-8.2)
[2020-01-24] MEDS: Normal Saline Flush 10 ML SYR IVP (09:54)
[2020-01-24 09:55] LABS: Abs Immature Grans 0.02 k/cumm (0.0-0.09); Absolute Basophil Count 0.03 k/cumm (0.0-0.2); Absolute Lymphocyte Count 0.54 k/cumm (1.2-3.4); Absolute Monocyte Count 0.39 k/cumm (0.11-0.7); Absolute Neutrophil Count 5.01 k/cumm (1.2-6.7); Basophils % 0.5; Eosinophils % 3.2; HCT 37.6 % (40.0-50.0); HGB 12.3 g/dL (13.5-17.5); Immature Grans % 0.3 %; Lymphocytes % 8.7; Mean Corp. HGB Concentration 32.7 g/dL (32.0-36.0); Mean Corpuscular Hemoglobin 29.1 pg (27.0-33.0); Mean Corpuscular Volume 89.1 fL (80-95); Mean Platelet Volume 7.9 fL (8.0-11.0); Monocytes % 6.3; Platelet Count 272 x1000/uL (130-400); RBC 4.22 m/cumm (4.50-6.00); RBC Distribution Width 13.4 % (11.8-14.1); White Blood Cell Count 6.19 k/cumm (4.4-10.8)
[2020-01-24 10:17] LABS: ALT 18 U/L (16-63); AST 15 U/L (15-37); Albumin 3.6 g/dL (3.4-5.0); Alkaline Phosphatase 77 U/L (46-116); Anion Gap 6.4 mmol/L (3-11); BUN 24 mg/dL (7-18); Bilirubin, Total 0.3 mg/dL (0.2-1.0); CO2 29.6 mmol/L (21.0-32.0); CREATININE 0.89 mg/dL (0.70-1.30); Calcium 8.3 mg/dL (8.5-10.1); Chloride 101 mmol/L (98-107); FREE T4 1.23 ng/dL (0.76-1.46); Glucose 91 mg/dL (74-106); Potassium 3.9 mmol/L (3.5-5.1); Sodium 137 mmol/L (136-145); TSH 1.53 uIU/mL (0.36-3.74); Total Protein 7.2 g/dL (6.4-8.2)
== END 2020-02-08 23:59 | disposition home or self-care (01) ==
LOC: INF 01:34
PROVIDERS: PCP Family Medicine; Visit Provider Internal Medicine Hematology & Oncology
DX: Z79.899 Other long term (current) drug therapy (principal); Z45.2 Encounter for adjustment and management of vascular access device; C01 Malignant neoplasm of base of tongue; C78.01 Secondary malignant neoplasm of right lung; C78.02 Secondary malignant neoplasm of left lung
CPT/HCPCS: 36415; 36591; 80053; 84439; 84443; 85025

== ENCOUNTER 2020-03-06 01:35 | Outpatient (RCR) | payer MEDICARE, SELFPAY ==
[2020-02-14] MEDS: Normal Saline Flush 10 ML SYR IVP (09:18)
[2020-02-14 09:32] LABS: Abs Immature Grans 0.01 k/cumm (0.0-0.09); Absolute Basophil Count 0.04 k/cumm (0.0-0.2); Absolute Eosinophil Count 0.48 k/cumm (0.0-0.7); Absolute Lymphocyte Count 0.98 k/cumm (1.2-3.4); Absolute Monocyte Count 0.45 k/cumm (0.11-0.7); Absolute Neutrophil Count 5.23 k/cumm (1.2-6.7); Basophils % 0.6; Eosinophils % 6.7; HCT 37.9 % (40.0-50.0); HGB 12.5 g/dL (13.5-17.5); Immature Grans % 0.1 %; Lymphocytes % 13.6; Mean Corpuscular Hemoglobin 28.8 pg (27.0-33.0); Mean Corpuscular Volume 87.3 fL (80-95); Mean Platelet Volume 8.1 fL (8.0-11.0); Monocytes % 6.3; Neutrophils % 72.7; Platelet Count 337 x1000/uL (130-400); RBC 4.34 m/cumm (4.50-6.00); RBC Distribution Width 13.2 % (11.8-14.1); White Blood Cell Count 7.19 k/cumm (4.4-10.8)
[2020-02-14 09:52] LABS: ALT 24 U/L (16-63); AST 18 U/L (15-37); Albumin 3.7 g/dL (3.4-5.0); Alkaline Phosphatase 93 U/L (46-116); Anion Gap 7.6 mmol/L (3-11); BUN 18 mg/dL (7-18); Bilirubin, Total 0.4 mg/dL (0.2-1.0); CO2 29.4 mmol/L (21.0-32.0); CREATININE 0.85 mg/dL (0.70-1.30); Calcium 8.8 mg/dL (8.5-10.1); Chloride 100 mmol/L (98-107); FREE T4 1.32 ng/dL (0.76-1.46); Glucose 102 mg/dL (74-106); Potassium 3.8 mmol/L (3.5-5.1); Sodium 137 mmol/L (136-145); TSH 1.21 uIU/mL (0.36-3.74); Total Protein 7.7 g/dL (6.4-8.2)
== END 2020-03-10 23:59 | disposition home or self-care (01) ==
LOC: INF 01:35
PROVIDERS: PCP Family Medicine; Visit Provider Internal Medicine Hematology & Oncology
DX: Z79.899 Other long term (current) drug therapy (principal)
CPT/HCPCS: 36591; 80053; 84439; 84443; 85025

== ENCOUNTER 2020-03-27 01:31 | Outpatient (RCR) | payer MEDICARE, SELFPAY ==
[2020-03-27] MEDS: Normal Saline Flush 10 ML SYR IVP (09:49)
[2020-03-27 10:08] LABS: Abs Immature Grans 0.02 10^3/uL (0.0-0.06); Absolute Basophil Count 0.07 10^3/uL (0.0-0.2); Absolute Eosinophil Count 0.47 10^3/uL (0.0-0.7); Absolute Lymphocyte Count 0.73 10^3/uL (1.2-3.4); Absolute Monocyte Count 0.52 10^3/uL (0.1-0.8); Basophils % 0.8; Eosinophils % 5.5; HCT 34.7 % (40.0-50.0); HGB 11.3 g/dL (13.5-17.5); Immature Grans % 0.2; Lymphocytes % 8.5; MCH 27.7 pg (27.0-33.0); MCHC 32.6 % (32.0-36.0); MPV 8.2 fL (8.0-11.0); Nucleated RBC 0 %; Platelet Count 282 10^3/uL (130-400); RBC 4.08 10^6/uL (4.36-5.78); RDW 13.2 % (11.8-14.1); RDW-SD 40.6 fL; WBC 8.61 10^3/uL (4.4-10.8)
[2020-03-27 10:31] LABS: ALT 60 U/L (16-63); AST 17 U/L (15-37); Albumin 3.5 g/dL (3.4-5.0); Alkaline Phosphatase 92 U/L (46-116); Anion Gap 8.4 mmol/L (3-11); BUN 18 mg/dL (7-18); Bilirubin, Total 0.4 mg/dL (0.2-1.0); CO2 28.6 mmol/L (21.0-32.0); CREATININE 0.85 mg/dL (0.70-1.30); Calcium 8.6 mg/dL (8.5-10.1); Chloride 102 mmol/L (98-107); Glucose 101 mg/dL (74-106); Potassium 4.3 mmol/L (3.5-5.1); Sodium 139 mmol/L (136-145); TSH 0.27 uIU/mL (0.36-3.74); Total Protein 7.3 g/dL (6.4-8.2)
== END 2020-04-10 23:59 | disposition home or self-care (01) ==
LOC: INF 01:31
PROVIDERS: PCP Family Medicine; Visit Provider Internal Medicine Hematology & Oncology
DX: Z45.2 Encounter for adjustment and management of vascular access device (principal); Z79.899 Other long term (current) drug therapy
CPT/HCPCS: 36591; 80053; 84439; 84443; 85025

== ENCOUNTER 2020-05-08 02:11 | Outpatient (RCR) | payer MEDICARE, SELFPAY ==
[2020-04-19 12:20] LABS: Abs Immature Grans 0.03 10^3/uL (0.0-0.06); Absolute Basophil Count 0.07 10^3/uL (0.0-0.2); Absolute Eosinophil Count 0.71 10^3/uL (0.0-0.7); Absolute Lymphocyte Count 0.86 10^3/uL (1.2-3.4); Absolute Monocyte Count 0.47 10^3/uL (0.1-0.8); Absolute Neutrophil Count 7.65 10^3/uL (1.2-6.7); Basophils % 0.7; Eosinophils % 7.3; HCT 36.8 % (40.0-50.0); HGB 11.8 g/dL (13.5-17.5); Immature Grans % 0.3; Lymphocytes % 8.8; MCH 27.3 pg (27.0-33.0); MCHC 32.1 % (32.0-36.0); MPV 8.3 fL (8.0-11.0); Monocytes % 4.8; Neutrophils % 78.1; Nucleated RBC 0 %; Platelet Count 281 10^3/uL (130-400); RBC 4.33 10^6/uL (4.36-5.78); RDW 13.4 % (11.8-14.1); RDW-SD 41.2 fL; WBC 9.79 10^3/uL (4.4-10.8)
[2020-04-19 12:45] LABS: ALT 45 U/L (16-63); AST 19 U/L (15-37); Albumin 3.5 g/dL (3.4-5.0); Alkaline Phosphatase 96 U/L (46-116); Anion Gap 7.2 mmol/L (3-11); BUN 23 mg/dL (7-18); Bilirubin, Total 0.4 mg/dL (0.2-1.0); CO2 28.8 mmol/L (21.0-32.0); CREATININE 0.83 mg/dL (0.70-1.30); Calcium 8.8 mg/dL (8.5-10.1); Chloride 101 mmol/L (98-107); FREE T4 1.23 ng/dL (0.76-1.46); Glucose 100 mg/dL (74-106); Potassium 4.1 mmol/L (3.5-5.1); Sodium 137 mmol/L (136-145); TSH 1.85 uIU/mL (0.36-3.74); Total Protein 7.6 g/dL (6.4-8.2)
[2020-04-19] MEDS: Normal Saline Flush 10 ML SYR IVP (13:06)
[2020-05-08] MEDS: Normal Saline Flush 10 ML SYR IVP (09:20)
[2020-05-08 09:41] LABS: Abs Immature Grans 0.02 10^3/uL (0.0-0.06); Absolute Basophil Count 0.04 10^3/uL (0.0-0.2); Absolute Eosinophil Count 0.63 10^3/uL (0.0-0.7); Absolute Lymphocyte Count 0.69 10^3/uL (1.2-3.4); Absolute Monocyte Count 0.44 10^3/uL (0.1-0.8); Absolute Neutrophil Count 5.48 10^3/uL (1.2-6.7); Basophils % 0.5; Eosinophils % 8.6; HCT 32.5 % (40.0-50.0); HGB 10.3 g/dL (13.5-17.5); Immature Grans % 0.3; Lymphocytes % 9.5; MCH 26.8 pg (27.0-33.0); MCHC 31.7 % (32.0-36.0); MCV 84.4 fL (80-95); MPV 8.1 fL (8.0-11.0); Neutrophils % 75.1; Nucleated RBC 0 %; Platelet Count 262 10^3/uL (130-400); RBC 3.85 10^6/uL (4.36-5.78); RDW 13.7 % (11.8-14.1); RDW-SD 42.2 fL
[2020-05-08 10:04] LABS: ALT 16 U/L (16-63); AST 15 U/L (15-37); Albumin 3.1 g/dL (3.4-5.0); Alkaline Phosphatase 87 U/L (46-116); Anion Gap 6.2 mmol/L (3-11); BUN 20 mg/dL (7-18); Bilirubin, Total 0.3 mg/dL (0.2-1.0); CO2 29.8 mmol/L (21.0-32.0); CREATININE 0.99 mg/dL (0.70-1.30); Calcium 8.5 mg/dL (8.5-10.1); Chloride 99 mmol/L (98-107); FREE T4 1.37 ng/dL (0.76-1.46); Glucose 101 mg/dL (74-106); Potassium 4.1 mmol/L (3.5-5.1); Sodium 135 mmol/L (136-145); TSH 0.49 uIU/mL (0.36-3.74); Total Protein 7.1 g/dL (6.4-8.2)
== END 2020-05-10 23:59 | disposition home or self-care (01) ==
LOC: INF 02:11
PROVIDERS: PCP Family Medicine; Visit Provider Internal Medicine Hematology & Oncology
DX: Z79.899 Other long term (current) drug therapy (principal); Z45.2 Encounter for adjustment and management of vascular access device
CPT/HCPCS: 36591; 80053; 84439; 84443; 85025

== ENCOUNTER 2020-06-05 01:07 | Outpatient (RCR) | payer MEDICARE, SELFPAY ==
[2020-05-22] MEDS: Normal Saline Flush 10 ML SYR IVP (12:54)
[2020-05-22 13:04] LABS: Abs Immature Grans 0.02 10^3/uL (0.0-0.06); Absolute Basophil Count 0.07 10^3/uL (0.0-0.2); Absolute Eosinophil Count 0.55 10^3/uL (0.0-0.7); Absolute Lymphocyte Count 2.25 10^3/uL (1.2-3.4); Absolute Monocyte Count 0.56 10^3/uL (0.1-0.8); Absolute Neutrophil Count 5.15 10^3/uL (1.2-6.7); Basophils % 0.8; Eosinophils % 6.4; HCT 35.5 % (40.0-50.0); HGB 11.3 g/dL (13.5-17.5); Immature Grans % 0.2; Lymphocytes % 26.2; MCHC 31.8 % (32.0-36.0); MCV 84.7 fL (80-95); MPV 8.2 fL (8.0-11.0); Monocytes % 6.5; Neutrophils % 59.9; Nucleated RBC 0 %; Platelet Count 342 10^3/uL (130-400); RBC 4.19 10^6/uL (4.36-5.78); RDW 14.1 % (11.8-14.1); RDW-SD 42.1 fL
[2020-05-22 13:29] LABS: ALT 16 U/L (16-63); AST 12 U/L (15-37); Albumin 3.4 g/dL (3.4-5.0); Alkaline Phosphatase 96 U/L (46-116); Anion Gap 7.2 mmol/L (3-11); BUN 21 mg/dL (7-18); Bilirubin, Total 0.3 mg/dL (0.2-1.0); CO2 29.8 mmol/L (21.0-32.0); Calcium 8.9 mg/dL (8.5-10.1); Chloride 99 mmol/L (98-107); FREE T4 1.22 ng/dL (0.76-1.46); Glucose 88 mg/dL (74-106); Potassium 4.1 mmol/L (3.5-5.1); Sodium 136 mmol/L (136-145); TSH 2.61 uIU/mL (0.36-3.74); Total Protein 7.9 g/dL (6.4-8.2)
[2020-05-29] MEDS: Normal Saline Flush 10 ML SYR IVP (09:25)
[2020-05-29 09:44] LABS: Abs Immature Grans 0.04 10^3/uL (0.0-0.06); Absolute Basophil Count 0.04 10^3/uL (0.0-0.2); Absolute Eosinophil Count 0.13 10^3/uL (0.0-0.7); Absolute Lymphocyte Count 1.97 10^3/uL (1.2-3.4); Absolute Monocyte Count 0.73 10^3/uL (0.1-0.8); Absolute Neutrophil Count 5.67 10^3/uL (1.2-6.7); Basophils % 0.5; Eosinophils % 1.5; HCT 35.5 % (40.0-50.0); HGB 11.2 g/dL (13.5-17.5); Immature Grans % 0.5; MCHC 31.5 % (32.0-36.0); MCV 85.5 fL (80-95); MPV 8.3 fL (8.0-11.0); Monocytes % 8.5; Nucleated RBC 0 %; Platelet Count 362 10^3/uL (130-400); RBC 4.15 10^6/uL (4.36-5.78); RDW 14.4 % (11.8-14.1); RDW-SD 42.5 fL; WBC 8.58 10^3/uL (4.4-10.8)
[2020-05-29 09:53] LABS: ALT 19 U/L (16-63); AST 14 U/L (15-37); Albumin 3.4 g/dL (3.4-5.0); Alkaline Phosphatase 87 U/L (46-116); BUN 19 mg/dL (7-18); Bilirubin, Total 0.2 mg/dL (0.2-1.0); CREATININE 0.91 mg/dL (0.70-1.30); Calcium 8.8 mg/dL (8.5-10.1); Chloride 102 mmol/L (98-107); Glucose 84 mg/dL (74-106); Potassium 3.7 mmol/L (3.5-5.1); Sodium 137 mmol/L (136-145); Total Protein 7.2 g/dL (6.4-8.2)
== END 2020-06-10 23:59 | disposition home or self-care (01) ==
LOC: INF 01:07
PROVIDERS: PCP Family Medicine; Visit Provider Internal Medicine Hematology & Oncology
DX: Z79.899 Other long term (current) drug therapy (principal)
CPT/HCPCS: 36591; 80053; 84439; 84443; 85025

== ENCOUNTER 2020-07-10 02:03 | Outpatient (RCR) | payer MEDICARE, SELFPAY ==
[2020-06-26] MEDS: Heparin 500 UNITS/5 ML SYRINGE IV (12:24)
[2020-06-26] MEDS: Normal Saline Flush 10 ML SYR IVP (12:24)
[2020-06-26 12:41] LABS: Abs Immature Grans 0.04 10^3/uL (0.0-0.06); Absolute Basophil Count 0.09 10^3/uL (0.0-0.2); Absolute Eosinophil Count 0.55 10^3/uL (0.0-0.7); Absolute Lymphocyte Count 1.14 10^3/uL (1.2-3.4); Absolute Monocyte Count 0.73 10^3/uL (0.1-0.8); Absolute Neutrophil Count 8.44 10^3/uL (1.2-6.7); Basophils % 0.8; HCT 36.2 % (40.0-50.0); HGB 11.7 g/dL (13.5-17.5); Immature Grans % 0.4; Lymphocytes % 10.4; MCH 27.3 pg (27.0-33.0); MCHC 32.3 % (32.0-36.0); MCV 84.6 fL (80-95); MPV 8.4 fL (8.0-11.0); Monocytes % 6.6; Neutrophils % 76.8; Nucleated RBC 0 %; Platelet Count 346 10^3/uL (130-400); RBC 4.28 10^6/uL (4.36-5.78); RDW 14.6 % (11.8-14.1); RDW-SD 45.3 fL; WBC 10.99 10^3/uL (4.4-10.8)
[2020-06-26 13:00] LABS: ALT 17 U/L (16-63); AST 13 U/L (15-37); Albumin 3.8 g/dL (3.4-5.0); Alkaline Phosphatase 108 U/L (46-116); Anion Gap 9.7 mmol/L (3-11); BUN 22 mg/dL (7-18); Bilirubin, Total 0.3 mg/dL (0.2-1.0); CO2 28.3 mmol/L (21.0-32.0); CREATININE 0.83 mg/dL (0.70-1.30); Calcium 8.6 mg/dL (8.5-10.1); Chloride 99 mmol/L (98-107); Glucose 94 mg/dL (74-106); Potassium 3.9 mmol/L (3.5-5.1); Sodium 137 mmol/L (136-145); TSH 0.16 uIU/mL (0.36-3.74); Total Protein 8.3 g/dL (6.4-8.2)
[2020-07-10] MEDS: Normal Saline Flush 10 ML SYR IVP (12:15)
[2020-07-10] MEDS: Heparin 500 UNITS/5 ML SYRINGE IV (12:15)
[2020-07-10 12:50] LABS: Abs Immature Grans 0.03 10^3/uL (0.0-0.06); Absolute Basophil Count 0.06 10^3/uL (0.0-0.2); Absolute Eosinophil Count 0.44 10^3/uL (0.0-0.7); Absolute Lymphocyte Count 1.14 10^3/uL (1.2-3.4); Absolute Monocyte Count 0.46 10^3/uL (0.1-0.8); Absolute Neutrophil Count 7.11 10^3/uL (1.2-6.7); Basophils % 0.6; Eosinophils % 4.8; HCT 34.8 % (40.0-50.0); HGB 10.9 g/dL (13.5-17.5); Immature Grans % 0.3; Lymphocytes % 12.3; MCH 27.5 pg (27.0-33.0); MCHC 31.3 % (32.0-36.0); MCV 87.7 fL (80-95); MPV 8.2 fL (8.0-11.0); Nucleated RBC 0 %; Platelet Count 353 10^3/uL (130-400); RBC 3.97 10^6/uL (4.36-5.78); RDW 14.8 % (11.8-14.1); RDW-SD 46.2 fL; WBC 9.24 10^3/uL (4.4-10.8)
[2020-07-10 13:05] LABS: ALT 12 U/L (16-63); AST 14 U/L (15-37); Albumin 3.4 g/dL (3.4-5.0); Alkaline Phosphatase 98 U/L (46-116); Anion Gap 7.7 mmol/L (3-11); BUN 18 mg/dL (7-18); Bilirubin, Total 0.3 mg/dL (0.2-1.0); CO2 27.3 mmol/L (21.0-32.0); CREATININE 0.83 mg/dL (0.70-1.30); Calcium 8.4 mg/dL (8.5-10.1); Chloride 101 mmol/L (98-107); Glucose 94 mg/dL (74-106); Potassium 4.1 mmol/L (3.5-5.1); Sodium 136 mmol/L (136-145); Total Protein 7.6 g/dL (6.4-8.2)
== END 2020-07-10 23:59 | disposition home or self-care (01) ==
LOC: INF 02:03
PROVIDERS: Internal Medicine Hematology & Oncology; PCP Family Medicine; Visit Provider Internal Medicine Hematology & Oncology
DX: Z79.899 Other long term (current) drug therapy (principal); C01 Malignant neoplasm of base of tongue
CPT/HCPCS: 36591; 80053; 84439; 84443; 85025

== ENCOUNTER 2020-07-31 01:50 | Outpatient (RCR) | payer MEDICARE, SELFPAY ==
--- OUTSIDE RECORDS SUMMARY | 2020-07-31 01:53 | XMS_ITS ---
:1975 Author Organization [facility] OFFICE Address [address] [facility] 1 [place] [address] Care Team Providers Name Role Phone Magdiel High Unavailable Unavailable PROBLEMS Type Condition ICD9-CM [id number] Onset Condition SNOMED Cod e Code Code Dates Status Problem Chronic pain due G89.3 Active 989 [id number] to neoplasm Problem Chemotherapy R11.2 Active 7212649 0 induced nausea and vomiting Problem Grief reaction F43.21 Active 00773 009 Problem Metastatic cancer C80.1 Active 12 8005900 Problem Cancer of base of C01 Active 36 3072291 tongue Problem Tongue cancer C02.9 Active 807967 006 Problem Dysphagia R13.10 Active 08999884 Problem Hypothyroidism E03.9 Active 16468 008 ALLERGIES Substance Reaction Event Type Date Status bees swelling Non Drug Allergy Jun, Active Bactrim rash Drug Allergy Jun, Active mold and dust Unknown Non Drug Allergy Jun, Active Penicillin rash, swelling Non Drug Allergy Jun, Active ENCOUNTERS Encounter Location Date Diagnosis [facility] [address] [place] [address] 1 Jun, [place] static cancer C80.1 ; [place] [address] Tongue can cer C02.9 ; Hypothyroidism E 03.9 and Preop examinatio n Z01.818 [facility] [address] [place] [address] 1 May, Ches t wall pain R07.1 ; [place] [address] Tongue can cer C02.9 and Hypothyroidism E 03.9 [facility] [address] [facility] 1 May, OFFICE [address] [facility] 8 [place] [address] Apr, Sinu sitis, acute J01.90 ; [place] [address] Tongue can cer C02.9 ; Hypothyroidism E 03.9 and Grief reaction F 43.21 [facility] 22 Apr, 2020 [place] [address] [facility] [address] Mar, [place] [address] [facility] [address] Feb, Preo p examination Z01.818 ; [place] [address] Tongue can cer C02.9 and Hypothyroidism E 03.9 [facility] [address] Feb, [place] [address] [facility] [address] Jul, Worr ied well Z71.1 OFFICE [place] [id number] [place] [address] PHYSICIANS [address] Apr, [place]ICE [place] [address] [place] [address] PHYSICIANS [address] Feb, [place] [address] [place] [facility] [address] Jan, [place] [address] [facility] [address] December, [place] [address] C01 [facility] [address] Nov, [place] [address] [facility] [address] Sep, Tong ue cancer C02.9 [place] [address] Hypothyroi dism E03.9 [facility] [address] Aug, [place] [address] ORTHOPEDIC OFFICE [address] May, [place] [address] [facility] [address] May, [place] [address] [facility] [address] May, [place] [address] [facility] [address] Apr, [place] [address] xxOFFICE NON CLINICAL [address] Jan, [place] [address] [facility] [address] Jan[place] [address] [facility] [address] December, [place] [address] [facility] [address] December, [place] [address] [facility] [address] Nov[place] [address] [facility] [address] Oct, [place] [address] [facility] [address] Oct, OFFICE [address] [facility] [address] [facility] [address] Sep, OFF[address] [facility] [address] [facility] [address], [address] [facility] 8 [facility] [address] Sep, [place] [address] [facility] [address] [facility] [address] Aug, [address] [facility] [address] [facility] [address] Aug, OFF[address] [facility] 8 [facility] [address] Aug, OFF[address] [facility] 8 [facility] [address] Aug, Acut e sinusitis J01.90 ; [place] [address] Cough R05 and Tongue cancer C02.9 [facility] [address] [facility] [address] Aug, [address] [facility] 8 [facility] [address] Jul, Dysp hagia R13.10 ; [place] [address] R05 and To ngue cancer C02.9 [facility] [address] [facility] [address] Sep, OFF[address] [facility] [address] [facility] [address] Aug, OFF[address] [facility] 8 [facility] [address] Aug, OFF[address] [facility] 8 [facility] [address], [address] [facility] 8 [facility] [address] Aug, Trever opathy R59.[address] [facility] 8 [facility] [address] Aug, Acut [place] [address] pansinusit is J01.40 and Allergic reactio n caused by a drug, initial encounter T78.40XA [facility] [address] [facility] [address] Aug, OFF[address] [facility] 8 [facility] [address] Aug, Acut e maxillary sinusitis, [place] [address] recurrence not specified J01.00 [facility] [address] [facility] [address] Aug, Sore throat J02.9 [place] [address] maxillary sinusitis, recurrence not s pecified J01.00 [facility] [address] May, [facility], [facility] [address] May, Gage gles rash B02.9 [place] [address] [facility] [address] December, OFFICE [facility], [facility] [address] December, Amarjit rgic rhinitis due to OFFICE [facility] allergen 4 77.8 [facility] [address] Aug, OFFICE [facility], [facility]98 [facility] [address] Aug, Coug h 786.2 OFFICE [place] [id number] [facility] [address] Jul, Join t pain, elbow 719.42 OFFICE [facility] [place] [address] xxRADIOLOGY [address] [facility] Jun, [place] [address] [facility] [address] Jun, Join t pain, elbow 719.42 [place] [address] CASE MANAGEMENT [address] [facility] 15 Jun, 2011 [place] [address] [facility] [address] Apr, [place] [address] [facility] [address] Mar, [place] [address] ORTHOPEDIC OFFICE [address] [facility] Sep, [place] [address] ORTHOPEDIC OFFICE [address] [facility] Sep, [place] [address] 824.2 ORTHOPEDIC OFFICE [address] [facility] Aug, [place] [address] ORTHOPEDIC OFFICE [address] [facility] Aug, [place] [address] 824.2 ORTHOPEDIC OFFICE [address] [facility] Jul, [place] [address] 824.2 xxRADIOLOGY [address] [facility] Jun, [place] [address] ORTHOPEDIC OFFICE [address] [facility] Jun, [place] [address] 824.2 ORTHOPEDIC OFFICE [address] [facility] May, [place] [address] 824.2 ORTHOPEDIC OFFICE [address] [facility] May, [place] [address] 824.2 ORTHOPEDIC OFFICE [address] [facility] May, [place] [address] 824.2 ORTHOPEDIC OFFICE [address] [facility] Apr, [place] [address] 824.2 ORTHOPEDIC OFFICE [address] [facility] Mar, [place] [address] 824.2 ORTHOPEDIC OFFICE [address] [facility] Mar, FX [facility] [place] [address] 824.2 IMMUNIZATIONS No Known Immunizations SOCIAL HISTORY Qualifiers Date Never Smoker REASON FOR REFERRAL FUNCTIONAL STATUS PLAN OF CARE Activity Details Follow Up 3 Months Reason: Future Appointment Provider Name:Magdiel High, 2 02:30:00 PM, [address] [facility] [address], [place], [place], [address], VITAL SIGNS Height 73 in 2020-06-13 Weight 165.4 lbs 2020-06-13 BMI 21.82 kg/m2 2020-06-13 Temperature 98.1 degrees Fahrenheit 2020-06-13 Heart Rate 60 /min 2020-06-13 Respiratory Rate 18 /min 2020-06-13 Oximetry 96 % 2020-06-13 Blood pressure systolic 111 mm Hg 2020-06-13 Blood pressure diastolic 59 mm Hg 2020-06-13 MEDICATIONS Medication Instructions Dosage Frequency Start End Duration Statu s Date Date Gabapentin 25 Orally TID 10 ml 8h Active MG/ML Lansoprazole TAKE 1 90 Active 30.000 CAPSULE BY MOUTH ONCE DAILY ALPRAZolam 0.5 Orally Twice a 1 tablet Apr, 15 days N ot-Takin MG day prn 2020 g Nystatin 119322 Mouth/Throat 5 ml Mar, 14 days Act minna unit/ml swish and spit 2020 Four times a day Ibuprofen 100 Orally every 4 20 ml Act minna MG/5ML hrs for fever, PRN Levothyroxine Orally Once a 1 tablet 24h Act minna Sodium 125 MCG day Claritin 10 MG Orally Once a 1 tablet 24h 30 day(s) Active day ACETAMINOPHEN per G tube 2 tab(s) 6h Active 500 mg every 6 hours PROCEDURES No Known procedures RESULTS Name Result Date Reference Range CT Chest w/ (17718) 2019-06-18 See Below For Report MULTIPLE LABS 2018-06-18 AMYLASE 2017-02-07 PERNELL 29 25-115 BASEMET 2017-02-07 GLUC 110 74-106 BUN 19 7-18 CREATS 0.77 0.55-1.30 EGFR >60 >=60 NA 139 136-144 K+ 3.9 3.7-5.0 CL 100 98-108 CO2 27 22-32 CA 9.2 8.5-10.1 CBC WITH AUTO DIFF 2017-02-07 WBC 5.7 4.0-12.0 RBC 3.9 4.5-6.0 HGB 12.1 13.5-18.0 HCT 36.1 42.0-52.0 MCV 94 78-100 MCH 31.3 27.0-32.0 MCHC 33.5 32.0-36.0 RDW 14.7 11.0-14.0 PLT 188 140-440 MPV 9.4 7.4-11.0 ANC# 4.5 1.4-7.9 IG# 0.0 0.0-0.1 LY# 0.6 1.5-4.0 MO# 0.5 0.2-0.8 EO# 0.0 0.0-0.7 BA# 0.0 0.0-0.2 NE% 79.6 IG% 0.2 0.0-1.0 LY% 10.8 MO% 9.2 EO% 0.0 BA% 0.4 LIVER FUNCTION TESTS 2017-02-07 TP 7.7 6.5-8.1 ALB 4.2 3.4-5.0 TBIL 0.8 0.3-1.2 DBIL 0.1 0.0-0.2 ALKP 95 46-116 AST 15 15-37 ALT 17 13-78 LIPASE 2017-02-07 LIP 124 73-393 RAPID STREP SCREEN,IN OFFICE (2 2016-08-13 Swab System) Result neg RAPID STREP PLATE 2016-08-13 Culture Observations Negative for group A Strep. Direct Exam Negative first day RAPID STREP SCREEN,IN OFFICE (2 2011-08-23 Swab System) Result Neg RAPID STREP PLATE 2011-08-23 Direct Exam negative @ 24 hours Culture Observations negative group A Strep X ray: Elbow, left 2011-07-03 X ray: Ankle, left X ray: Ankle, right CTScan Lower Ext W/O Contrast CPT-[id number] X ray: Ankle 3 Views X ray: Ankle, right X ray: Ankle, right X ray: Ankle, right X ray: Ankle, right REASON FOR VISIT 6 MO F/U, 3 m follow up , 2 mo f/u, Preop [facility], Medications reviewed w/pt,med. list is correct, No medication refills needed at this time., muscle spasms, ? broken rib, pt declines flu shot today, muscle spasm/broken rib, pain, sinus infection per , Medications reviewed w/pt,med. list is correct, Medication refills needed for the following: Nystatin , pt declines flu shot today- LL, sinus infection/call back, Sores inside lip, Preop, [facility], Medications reviewed w/pt,med. list is correct- SM, No medication refills needed at this time., prevacid refill , possible hernia, Medications reviewed w/pt,med. list is correct- SM, No medication refills needed at this time., Speak to Dr. High, refill-prevacid, [place] request, out of network referral, Prevacid refill , Partial glossectomy-[facility], Paperwork needs to be completed, DOS: 10/09/18, OK with JF, Partial Glossectomy, question for Dr. High, Prevacid script , prevacid, Update, see notes , Discharge from [facility] not working-lmom, 01/08- tb, allergies, acide reflux, Oxycodone refill, Re-admit to , FYI, admit to [facility], scripts cancelled, FYI,Multiple refills , 6 week f/u , update, script to [facility], methadone, trache info-FYI, 3 week f/u ,Requesting earlier appt., cough, [facility], Update med list, call back, Speak to JF, throat pain, Referral to Dr. Varma, "DISCLAIMER: THIS NOTE WAS CREATED USING [employer] VOICE RECOGNITION SOFTWARE. IT WAS REVIEWED FOR MAJOR CONTENT. HOWEVER, THERE MAY BE MULTIPLE SMALL DISCREPANCIES AND ERRORS DUE TO THE VOICE RECOGNITION ASPECTS OF THE SOFTWARE., still not feeling well, pt hasa rash from the Bactrim , pt is spitting up blood, pt has a lump on his LT side of his chin/neck, not better, abx too expensive, sinus infection, sore throat, head pressure, headache, x's 2 weeks, 06/05L new pt appt, rash, Pt states rash started at the end of last week. , Pt put hydrocortizone on therash, Pt states the rash does not bother him, states it was a little red. , Pt declined flu shot, appt with Dr. High--Please see notes, coughing, green phelgm, Med list reviewed, no daily meds.marciano,rn, Has had symptoms x 3 months or so, off and on., ?sinus infection-- cancelled did not want to r/s 12/17, hives, ?pneumonia- pt staets he has had, cold, cough, vomiting due to coughing. , pt states his family all has broncitis. , pt states he is only taking OTC cold meds. - *JLB, lt elbow, left elbow pain - has been bothering him for about a month - banged it on something and pain did not go away, Medsreviewed, no longer taking: oxycodone, prednisone {BP}, appt with CL, Bee stings again today, Review PA note, W/C fx ankle., Review PA note, W/C f/u fx ankle/needs x-ray, W/C FU, R leg aches all the time sometimes it just throbs, not taking anything for pain, ct lower ext. , W/C Fx leg/ankle, W/C FUANKLE, XRAYS FIRST FU RT FOOT, f/u fx right ankle. 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 , f/u right ankle fx W/C, Needs x-ray, fu fx ankle, fx ankle right, rock rolled on your ankle, 02/17 pain level Insurance Providers [facility] Health Member Patient Patient Patient Patient Patient Subscriber Subscriber Subscriber Group Insurance Plan Plan Plan Plan ID Relationship Address Phone Name Date of ID Name Date of No Type Insurance Insurance Insurance Coverage to Subscriber Address Phone Name Dates MEDICARE [address] MEDICARE self NIKKY 1975 [id number] [facility] [place] [id number] SELF PAY [address] SELF PAY self NIKKY 1975 [place] [address] MEDICARE P WHA [facility] self NIKKY [id number] [facility] [place] [id number] SELF PAY SELF PAY self NIKKY 1975 [id number] PLAN PLAN [facility] MEDICAL (GENERAL) HISTORY Type Description Date Medical History Tongue sq cell ca Medical History Hypothyroid Surgical History appendectomy age 7 Surgical History resection of base of the tongue w/ALT fl ap 08/19/17 reconstruction- [facility] Surgical History PEG tube placement- [facility] 08/29/17 Hospitalization History [facility]-resection of base of tongue can cer 08/19/17
[2020-07-31] MEDS: Normal Saline Flush 10 ML SYR IVP (09:50)
[2020-07-31 09:58] LABS: Abs Immature Grans 0.04 10^3/uL (0.0-0.06); Absolute Basophil Count 0.06 10^3/uL (0.0-0.2); Absolute Lymphocyte Count 0.99 10^3/uL (1.2-3.4); Absolute Monocyte Count 0.47 10^3/uL (0.1-0.8); Absolute Neutrophil Count 6.76 10^3/uL (1.2-6.7); Basophils % 0.7; Eosinophils % 5.7; HCT 35.1 % (40.0-50.0); HGB 11.3 g/dL (13.5-17.5); Immature Grans % 0.5; Lymphocytes % 11.2; MCHC 32.2 % (32.0-36.0); MCV 87.1 fL (80-95); MPV 8.1 fL (8.0-11.0); Monocytes % 5.3; Neutrophils % 76.6; Nucleated RBC 0 %; Platelet Count 291 10^3/uL (130-400); RBC 4.03 10^6/uL (4.36-5.78); RDW 16.8 % (11.8-14.1); RDW-SD 50.6 fL; WBC 8.82 10^3/uL (4.4-10.8)
[2020-07-31] MEDS: Heparin 500 UNITS/5 ML SYRINGE IV (09:59)
[2020-07-31 10:10] LABS: ALT 15 U/L (16-63); AST 14 U/L (15-37); Albumin 3.5 g/dL (3.4-5.0); Alkaline Phosphatase 106 U/L (46-116); Anion Gap 5.7 mmol/L (3-11); BUN 17 mg/dL (7-18); Bilirubin, Total 0.3 mg/dL (0.2-1.0); CO2 29.3 mmol/L (21.0-32.0); CREATININE 1.02 mg/dL (0.70-1.30); Chloride 101 mmol/L (98-107); Glucose 82 mg/dL (74-106); Potassium 4.4 mmol/L (3.5-5.1); Sodium 136 mmol/L (136-145); Total Protein 7.6 g/dL (6.4-8.2)
== END 2020-08-10 23:59 | disposition home or self-care (01) ==
LOC: INF 01:50
PROVIDERS: PCP Family Medicine; Visit Provider Internal Medicine Hematology & Oncology
DX: C01 Malignant neoplasm of base of tongue (principal); Z79.899 Other long term (current) drug therapy; Z45.2 Encounter for adjustment and management of vascular access device
CPT/HCPCS: 36591; 80053; 85025

== ENCOUNTER 2020-08-21 01:56 | Outpatient (RCR) | payer MEDICARE, SELFPAY | END 2020-09-10 23:59 | disposition home or self-care (01) | LOC: INF 01:56 | PROVIDERS: PCP Family Medicine; Visit Provider Internal Medicine Hematology & Oncology ==